=== PATIENT | male | born 1985 | race Caucasian/White ===

== ENCOUNTER 2022-11-02 08:55 | Emergency (ER) | payer OTHER ==
[~2022-11-02] VITALS: Ht 180.3 cm; Wt 90.7 kg
[~2022-11-02 08:55] MED LIST: AMOXICILLIN500 MG PO; ATARAX25 MG PO; CHLORDIAZEPOXID25 M1 PO; CLINDAMYCIN HC300 MG PO; FLEXERIL10 MG PO; FLEXERIL5 MG PO; HYDROXYZINE PAM50 MG PO; KENALOG0.1% TP; MOBIC7.5 MG PO; MOTRIN800 MG PO; NKHM; ONDANSETRON4 MG PO; PENICILLIN VK500 MG PO; PREDNISONE20 MG PO; SINEMET 25-100M1 TAB PO; SUBOXONE 2 MG-01 TA2 SL; TORADOL10 MG PO; [UNRECOGNIZED DRUG - OTHER] PO
[2022-11-02 09:09] VITALS: BP 143/86
== END 2022-11-02 09:51 | disposition left against medical advice (07) ==
LOC: ED 08:55
DX: T40.601A Poisoning by unspecified narcotics, accidental (unintentional), initial encounter (principal); Z88.8 Allergy status to other drugs, medicaments and biological substances; Z90.89 Acquired absence of other organs; Y92.89 Other specified places as the place of occurrence of the external cause

== ENCOUNTER 2024-10-07 15:27 | Emergency (ER) | payer OTHER ==
[~2024-10-07] VITALS: Ht 180.3 cm; Wt 104.3 kg
[2024-10-07 15:35] VITALS: BP 173/106
[2024-10-07] MEDS ORDERED: Ketamine Hydrochloride 500 MG/10 ML VIAL IV ONE ×2 (15:45→18:20)
[2024-10-07] MEDS ORDERED: SODIUM CHLORIDE 0.9% 1,000 ML IV ONE (15:45)
[2024-10-07] MEDS ORDERED: Ondansetron Hydrochloride 4 MG/2 ML VIAL IV ONE (15:45)
[2024-10-07 16:44] LABS: BASO # 0.0 10*3/uL (0.0-0.1); BASO % 0.4 % (0.0-1.0); EOS # 0.2 10*3/uL (0.0-0.4); EOS % 3.0 % (1.0-4.0); MEAN CELL VOLUME 83.9 fl (80.0-94.0); MEAN CORPUSCULAR HGB 27.8 pg (27.0-31.0); MEAN PLATELET VOLUME 9.1 fl (9.6-12.3); MONO # 0.5 10*3/uL (0.1-1.0); MONO % 6.7 % (3.0-9.0); NEUT # 4.7 10*3/uL (2.3-7.9); NEUT % 62.6 % (47.0-73.0); NUCLEATED RED BLOOD CELL 0.0 % (0.0-0.0); NUCLEATED RED BLOOD CELL 0.0 10*3/uL (0.0-0.0); PLATELET COUNT AUTOMATED 227 10*3/uL (130-400); RED CELL DISTRI WIDTH 12.7 % (0-14.5)
[2024-10-07 17:05] LABS: BUN 10 mg/dl (9-23); SGPT/ALT 29 U/L (5-49)
[2024-10-07 18:05] LABS: BILIRUBIN Negative (Negative); BLOOD 2+ (Negative); CLARITY Turbid (Clear); COLOR Yellow (Yellow); KETONE Trace (Negative); LEUKO ESTERASE Negative (Negative); NITRITE Negative (Negative); SPECIFIC GRAVITY 1.025 (1.001-1.030); UROBILINOGEN 1.0 E.U./dl (0.0-1.0)
[2024-10-07 18:06] LABS: PH 8.5 (4.5-8.0)
[2024-10-07 18:16] LABS: BACTERIA 3+; RBC 21-30 rbc/hpf (0-2); WBC 0-2 wbc/hpf (0-5)
[2024-10-07] MEDS ORDERED: CIPRO500 MG PO (18:26)
[2024-10-07] MEDS ORDERED: FLOMAX0.4 MG PO (18:26)
[2024-10-07] MEDS ORDERED: Ondansetron 4 MG 2 TAB ED PACK PO SCH (18:30)
== END 2024-10-07 19:32 | disposition home or self-care (01) ==
LOC: ED 15:27
PROVIDERS: Nurse Practitioner Family
DX: N13.2 Hydronephrosis with renal and ureteral calculous obstruction (principal); Z88.8 Allergy status to other drugs, medicaments and biological substances; Z88.6 Allergy status to analgesic agent; Z90.89 Acquired absence of other organs